=== PATIENT | male | born 1950 | race Caucasian/White ===

== ENCOUNTER → 2017-03-17 | Outpatient (CLI) | payer MEDICARE, OTHER | LOC: LAB SHORT 11:00 | DX: N39.0 Urinary tract infection, site not specified (principal) | CPT/HCPCS: 87077; 87086; 87186 ==

== ENCOUNTER → 2017-05-04 | Outpatient (CLI) | payer MEDICARE, OTHER | LOC: LAB 17:30 | DX: N39.0 Urinary tract infection, site not specified (principal) | CPT/HCPCS: 87086 ==

== ENCOUNTER → 2019-12-04 | Outpatient (CLI) | payer MEDICARE, OTHER | LOC: PLD 10:21 → LAB SHORT 10:21 | DX: D22.5 Melanocytic nevi of trunk (principal) | CPT/HCPCS: 88305 ==

== ENCOUNTER → 2020-03-11 | Outpatient (CLI) | payer MEDICARE, OTHER | END | disposition home or self-care (01) | LOC: LAB SHORT 15:46 → LAB 15:46 | DX: R82.998 Other abnormal findings in urine (principal) | CPT/HCPCS: 87077; 87086; 87186 ==

== ENCOUNTER → 2020-04-07 | Outpatient (CLI) | payer MEDICARE, OTHER | END | disposition home or self-care (01) | LOC: LAB 18:09 → LAB SHORT 18:09 | DX: R30.0 Dysuria (principal) | CPT/HCPCS: 87086 ==

== ENCOUNTER 2020-12-23 11:31 | Day surgery (SDC) | payer MEDICARE, OTHER ==
[~2020-12-23] VITALS: Ht 182.9 cm; Wt 131.6 kg
[2020-12-23] MEDS ORDERED: INSULANPEN SC (12:14)
[2020-12-23] MEDS ORDERED: NOVOLIN 70100 UNIT/3 SC (12:15)
[2020-12-23] MEDS ORDERED: TRAM50 (12:15)
[2020-12-23] MEDS ORDERED: HYDACE10B PO (12:15)
[2020-12-23] MEDS ORDERED: ATOR10 PO (12:16)
[2020-12-23] MEDS ORDERED: METFORMIN ER G500 MG PO (12:16)
[2020-12-23] MEDS ORDERED: TAMS.4ER PO (12:16)
[2020-12-23] MEDS ORDERED: TRULICITY1.5 MG/0.1 SQ (12:16)
[2020-12-23] MEDS ORDERED: AZOR 10-40 MG1 EACH PO (12:17)
[2020-12-23] MEDS ORDERED: MYRBETRIQ50 MG PO (12:17)
[2020-12-23] MEDS ORDERED: DOXA4 PO (12:17)
--- NOTE | 2020-12-23 12:28 | NUR ---
12/23/20 1228 Lisseth Corrales CALL LIGHT WITHIN REACH
--- NOTE | 2020-12-23 13:43 | NUR ---
12/23/20 1343 German Cabrera 1 MG EPI ADDED TO EACH OF THE FIRST 3 BAGS OF LR PER ORDER FOR IRRIGATION.
--- NOTE | 2020-12-23 15:32 | NUR ---
12/23/20 1532 Yasmin Martinez AT BEDSIDE/ MD STATES OKAY TO PROCEED TO STEP DOWN WITH 10L FACEMASK IN PLACE DUE TO SP02 AT 92-94% ON 10L STILL.
--- NOTE | 2020-12-23 15:44 | NUR ---
12/23/20 1544 Yasmin Martinez TRIAL DOWN TO 5L FACEMASK
== END 2020-12-23 17:04 | disposition home or self-care (01) ==
LOC: ORSCSDS 11:31
PROVIDERS: Orthopaedic Surgery
PROC: 0LM14ZZ Reattachment of Right Shoulder Tendon, Percutaneous Endoscopic Approach (ICD-10-PCS; principal; 2020-12-23 13:00)
PROC: 0RNJ4ZZ Release Right Shoulder Joint, Percutaneous Endoscopic Approach (ICD-10-PCS; principal; 2020-12-23 13:00)
PROC: 0RBJ4ZZ Excision of Right Shoulder Joint, Percutaneous Endoscopic Approach (ICD-10-PCS; principal; 2020-12-23 13:00)
DX: M75.121 Complete rotator cuff tear or rupture of right shoulder, not specified as traumatic (principal); M75.21 Bicipital tendinitis, right shoulder; M75.41 Impingement syndrome of right shoulder; M19.011 Primary osteoarthritis, right shoulder; I10 Essential (primary) hypertension; E11.9 Type 2 diabetes mellitus without complications; G47.33 Obstructive sleep apnea (adult) (pediatric); E66.01 Morbid (severe) obesity due to excess calories; Z68.39 Body mass index [BMI] 39.0-39.9, adult; Z79.4 Long term (current) use of insulin; Z79.899 Other long term (current) drug therapy; Z98.84 Bariatric surgery status
CPT/HCPCS: 82947; C1713; J0171; J0690; J1100; J2250; J2370; J2405; J2704; J3010; J7120

== ENCOUNTER → 2021-02-09 | Outpatient (CLI) | payer MEDICARE, OTHER ==
[~2021-02-09] MED LIST: ATOR10 PO; AZOR 10-40 MG1 EACH PO; DOXA4 PO; HYDACE10B PO; INSULANPEN SC; METFORMIN ER G500 MG PO; MYRBETRIQ50 MG PO; NOVOLIN 70100 UNIT/3 SC; TAMS.4ER PO; TRAM50; TRULICITY1.5 MG/0.1 SQ
== END ==
LOC: LAB SHORT 11:16 → LAB 11:16
DX: D48.5 Neoplasm of uncertain behavior of skin (principal); D03.59 Melanoma in situ of other part of trunk
CPT/HCPCS: 88305

== ENCOUNTER → 2021-03-04 | Outpatient (CLI) | payer MEDICARE, OTHER ==
[2021-03-04 10:29] LABS: Protein, Urine Quantitative 60.6 mg/dL (0.0-11.9)
== END | disposition home or self-care (01) ==
LOC: LAB SHORT 09:17
PROVIDERS: Family Medicine
DX: R80.9 Proteinuria, unspecified (principal)
CPT/HCPCS: 81050; 84156

== ENCOUNTER → 2021-06-23 | Outpatient (CLI) | payer MEDICARE, OTHER | END | disposition home or self-care (01) | LOC: PLD 12:42 → LAB SHORT 12:42 | DX: C44.612 Basal cell carcinoma of skin of right upper limb, including shoulder (principal); D04.71 Carcinoma in situ of skin of right lower limb, including hip | CPT/HCPCS: 88305 ==

== ENCOUNTER → 2021-12-25 | Outpatient (CLI) | payer MEDICARE, OTHER | END | disposition home or self-care (01) | LOC: LAB SHORT 08:49 → LAB 08:49 | DX: R30.0 Dysuria (principal) | CPT/HCPCS: 87077; 87086; 87186 ==

== ENCOUNTER → 2022-01-07 | Outpatient (CLI) | payer MEDICARE, OTHER | LOC: LAB SHORT 08:30 → LAB 08:30 | DX: R30.0 Dysuria (principal) | CPT/HCPCS: 87086 ==

== ENCOUNTER → 2022-05-23 | Outpatient (CLI) | payer MEDICARE, OTHER | LOC: LAB 09:00 → LAB SHORT 09:00 | DX: R30.0 Dysuria (principal) | CPT/HCPCS: 87077; 87086; 87186 ==

== ENCOUNTER → 2022-07-14 | Outpatient (CLI) | payer MEDICARE, OTHER ==
[2022-07-14 11:09] LABS: Protein, Urine Quantitative 127.9 mg/dL (0.0-11.9)
== END | disposition home or self-care (01) ==
LOC: LAB SHORT 05:00 → LAB 05:00
PROVIDERS: Family Medicine
DX: E11.649 Type 2 diabetes mellitus with hypoglycemia without coma (principal)
CPT/HCPCS: 81050; 84156

== ENCOUNTER → 2022-11-16 | Outpatient (CLI) | payer MEDICARE, OTHER | END | disposition home or self-care (01) | LOC: LAB SHORT 14:05 → LAB 14:05 | DX: R30.0 Dysuria (principal) | CPT/HCPCS: 87086 ==

== ENCOUNTER → 2023-01-11 | Outpatient (CLI) | payer MEDICARE, OTHER | LOC: LAB SHORT 10:15 → LAB 10:15 | DX: B35.1 Tinea unguium (principal) | CPT/HCPCS: 87102 ==

== ENCOUNTER → 2023-04-13 | Outpatient (CLI) | payer MEDICARE, OTHER | END | disposition home or self-care (01) | LOC: LAB 10:10 → LAB SHORT 10:10 | DX: R30.0 Dysuria (principal) | CPT/HCPCS: 87086 ==

== ENCOUNTER 2023-04-26 09:45 | Inpatient (IN) | payer MEDICARE, OTHER ==
[~2023-04-26] VITALS: Ht 182.9 cm; Wt 132.8 kg
[~2023-04-26 09:45] MED LIST changes: -TRAM50; +TRAM50 PO
[2023-04-26 10:12] LABS: BASOPHILS ABSOLUTE AUTO 0.03 K/mm3 (0.00-0.23); BASOPHILS PERCENT AUTO 0 % (0-2); EOSINOPHILS ABSOLUTE AUTO 0.32 K/mm3 (0.00-0.68); EOSINOPHILS PERCENT AUTO 4 % (0-6); Hematocrit 33.7 % (37.0-53.0); Hemoglobin 10.8 g/dL (13.5-17.5); IMMATURE GRAN ABSOLUTE AUTO 0.05 K/mm3 (0.00-0.10); IMMATURE GRAN PERCENT AUTO 1 % (0-1); LYMPHOCYTES ABSOLUTE AUTO 1.14 K/mm3 (0.84-5.20); LYMPHOCYTES PERCENT AUTO 13 % (21-46); MONOCYTES PERCENT AUTO 11 % (4-13); Mean Corpuscular Volume 94 fL (80-100); Mean Platelet Volume 11.3 fL (9.1-12.4); NEUTROPHILS PERCENT AUTO 72 % (41-73); Platelet Count 168 K/mm3 (150-400); RDW Coefficient Variation 13.9 % (11.7-14.2); RDW Standard Deviation 47.3 fL (35.1-46.3); White Blood Cell Count 9.04 K/mm3 (4.00-11.30)
[2023-04-26 10:44] LABS: Albumin, Blood 3.9 g/dL (3.4-5.0); Albumin/Globulin Ratio 1.1 (0.8-1.8); Bilirubin, Total 0.4 mg/dL (0.1-1.0); Bun/Creatinine Ratio 24.6 (12.0-20.0); Calcium, Blood 9.1 mg/dL (8.5-10.1); Creatinine, Blood 1.34 mg/dL (0.60-1.20); Globulin, Blood 3.7 g/dL (2.2-4.0); Potassium, Blood 4.3 mmol/L (3.5-5.5); Total Protein, Blood 7.6 g/dL (6.4-8.2)
[2023-04-26] MEDS ORDERED: Furosemide 10 MG / ML 2ML Vial IV ONE (11:50)
[2023-04-26] MEDS ORDERED: Metoprolol Tartrate 1 MG/ML 5 ML VIAL IV ONE (11:50)
[2023-04-26] MEDS ORDERED: FLU VACC QS2023-24(6MOS UP)/PF 60 MCG/0.5 ML SYRINGE IM SCH (13:20)
[2023-04-26] MEDS ORDERED: Ondansetron HCl 2 MG / ML 2ML Vial IV PRN (13:20)
[2023-04-26] MEDS ORDERED: Metoprolol Succinate 25 MG TABCR PO SCH (14:00)
[2023-04-26] MEDS ORDERED: Enoxaparin 150 MG/ML 1ML SYR SC SCH ×2 (14:02→21:00)
[2023-04-26 14:17] LABS: Magnesium, Blood 2.3 mg/dL (1.6-2.4); Thyroid Stimulating Hormone 3.03 uIU/mL (0.360-4.800)
[2023-04-26 14:56] VITALS: BP 127/80
[2023-04-26] MEDS ORDERED: FIASP 100100 UNIT/3 SC (15:12)
[2023-04-26] MEDS ORDERED: Furosemide 10 MG / ML 2ML Vial IV SCH (18:00)
[2023-04-26] MEDS ORDERED: Tamsulosin HCl 0.4 MG Cap PO SCH (19:00)
[2023-04-26] MEDS ORDERED: Atorvastatin 10 MG Tab PO SCH (19:00)
[2023-04-26 19:32] VITALS: BP 131/97
[2023-04-26] MEDS ORDERED: Enoxaparin 100 MG/ML 1ML SYR SC SCH (21:00)
[2023-04-27 04:56] VITALS: BP 123/86
[2023-04-27 05:40] LABS: BASOPHILS ABSOLUTE AUTO 0.05 K/mm3 (0.00-0.23); BASOPHILS PERCENT AUTO 1 % (0-2); EOSINOPHILS PERCENT AUTO 5 % (0-6); Hematocrit 33.8 % (37.0-53.0); Hemoglobin 10.8 g/dL (13.5-17.5); IMMATURE GRAN ABSOLUTE AUTO 0.05 K/mm3 (0.00-0.10); IMMATURE GRAN PERCENT AUTO 1 % (0-1); LYMPHOCYTES ABSOLUTE AUTO 1.42 K/mm3 (0.84-5.20); LYMPHOCYTES PERCENT AUTO 14 % (21-46); MONOCYTES ABSOLUTE AUTO 1.11 K/mm3 (0.16-1.47); MONOCYTES PERCENT AUTO 11 % (4-13); Mean Corpuscular HGB 29.8 pg (26.0-34.0); Mean Corpuscular Volume 93 fL (80-100); Mean Platelet Volume 11.4 fL (9.1-12.4); NEUTROPHILS ABSOLUTE AUTO 7.29 K/mm3 (1.96-9.15); NEUTROPHILS PERCENT AUTO 70 % (41-73); Platelet Count 173 K/mm3 (150-400); RDW Coefficient Variation 13.9 % (11.7-14.2); RDW Standard Deviation 46.9 fL (35.1-46.3); Red Blood Cell Count 3.63 M/mm3 (4.30-5.90); White Blood Cell Count 10.42 K/mm3 (4.00-11.30)
[2023-04-27 06:11] LABS: Albumin, Blood 3.5 g/dL (3.4-5.0); Bilirubin, Total 0.4 mg/dL (0.1-1.0); Bun/Creatinine Ratio 28.1 (12.0-20.0); Calcium, Blood 9.2 mg/dL (8.5-10.1); Creatinine, Blood 1.21 mg/dL (0.60-1.20); Globulin, Blood 3.5 g/dL (2.2-4.0); Potassium, Blood 4.5 mmol/L (3.5-5.5)
[2023-04-27] MEDS ORDERED: Insulin Regular 100 UNIT/ML 10ML Vial SC SCH (07:30)
[2023-04-27] MEDS ORDERED: Trospium Chloride 20 MG Tab PO SCH (07:30)
[2023-04-27 07:35] VITALS: BP 117/83
--- NOTE | 2023-04-27 08:22 | NUR ---
SHIFT SUMMARY KENDRA IS A&OX4, PLEASANT AND COOPERATIVE WITH CARES. VSS ON RA, CPAP WHILE ASLEEP. A-FIB WITH RATES IN THE 80'S-90'S PER TELEMETRY. NO C/O CHEST PAIN/PRESSURE. DENIES PAIN. TOLERATING A 2 GM Na RESTRICTED DIET. PT'S BG IS BRITTLE. I GAVE HIM SNACKS T/O NOC, AND HIS BG WAS STILL DROPPING. HE IS SCHEDULED FOR AN ECHO TODAY, THEN HE IS HOPING TO GO HOME. INDEPENDENT IN ROOM/BR. STRICT I&O, VOIDING IN URINAL. ADEQUATE CLEAR YELLOW URINE OUTPUT, NO BM THIS SHIFT. BED IN LOWEST POSITION, CALL LIGHT WITHIN REACH.
[2023-04-27] MEDS ORDERED: Enoxaparin 40 MG/0.4 ML SYR SC SCH (09:00)
[2023-04-27] MEDS ORDERED: TraMADol HCl 50 MG Tab PO SCH (09:00)
[2023-04-27] MEDS ORDERED: Ipratropium/Albuterol SulF 2.5-0.5MG/3 ML Amp INH SCH (09:25)
[2023-04-27] MEDS ORDERED: Fluticasone 0.05% Nasal Spray SCH (10:00)
[2023-04-27] MEDS ORDERED: Insulin Human Lispro 100 Units/ML 3ML Syringe SC SCH (11:30)
--- NOTE | 2023-04-27 15:08 | NUR ---
SHIFT SUMMARY MR ALBERTO IS ALERT AND ORIENTATED, DENIES ANY PAIN. AMBULATED IN TO SHOWER, STEADY GAIT. AWAITING ECHO. ON TELEMETRY IN AFIB. 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 ON CONTINUOUS PULSE OXIMETER IN THE 90S ON ROOM AIR. BED LOW, CALL LIGHT IN REACH.
[2023-04-27 15:23] VITALS: BP 118/85
[2023-04-27] MEDS ORDERED: Furosemide 20 MG Tab PO SCH (18:00)
[2023-04-27 19:24] VITALS: BP 131/88
--- NOTE | 2023-04-28 01:32 | NUR ---
ACCU CHECK 79, ASYMPTOMATIC. SNACK GIVEN. WILL CONTINUE TO MONITOR
--- NOTE | 2023-04-28 04:02 | NUR ---
[employer] INFORMATION CLERK SUMMARY VSS. LUNG SOUNDS DIMINISHED TO AUSCULTATION. CPAP AT NIGHT, CONTINUOUS PULSE OX. 90'S SATS. MED TELE A FIB. ACCU CHECK AT HS WAS 93, RECEIVED A SNACK AND RECHECKED LATER, WAS 79, AND AGAIN RECEIVED A SNACK. ASYMPTOMATIC. AWAITING RESULTS FROM ECHO. UP AD ANH. HAS BEEN RESTING QUIETLY WITH OCCASIONAL INERRUPTION. CALL LIGHT IN REACH. RAILS UP X 2 FOR SAFETY. WILL CONTINUE TO MONITOR
[2023-04-28 04:37] VITALS: BP 129/101
[2023-04-28 04:47] LABS: BASOPHILS ABSOLUTE AUTO 0.05 K/mm3 (0.00-0.23); BASOPHILS PERCENT AUTO 1 % (0-2); EOSINOPHILS ABSOLUTE AUTO 0.42 K/mm3 (0.00-0.68); EOSINOPHILS PERCENT AUTO 4 % (0-6); Hematocrit 33.4 % (37.0-53.0); Hemoglobin 10.6 g/dL (13.5-17.5); IMMATURE GRAN ABSOLUTE AUTO 0.05 K/mm3 (0.00-0.10); IMMATURE GRAN PERCENT AUTO 1 % (0-1); LYMPHOCYTES PERCENT AUTO 14 % (21-46); MONOCYTES ABSOLUTE AUTO 1.25 K/mm3 (0.16-1.47); MONOCYTES PERCENT AUTO 11 % (4-13); Mean Corpuscular HGB 29.2 pg (26.0-34.0); Mean Corpuscular HGB Conc 31.7 g/dL (31.5-36.5); Mean Corpuscular Volume 92 fL (80-100); Mean Platelet Volume 11.2 fL (9.1-12.4); NEUTROPHILS ABSOLUTE AUTO 7.72 K/mm3 (1.96-9.15); NEUTROPHILS PERCENT AUTO 70 % (41-73); Platelet Count 183 K/mm3 (150-400); RDW Coefficient Variation 13.9 % (11.7-14.2); RDW Standard Deviation 46.7 fL (35.1-46.3); Red Blood Cell Count 3.63 M/mm3 (4.30-5.90); White Blood Cell Count 10.99 K/mm3 (4.00-11.30)
[2023-04-28 05:10] LABS: Albumin, Blood 3.7 g/dL (3.4-5.0); Albumin/Globulin Ratio 1.1 (0.8-1.8); Bilirubin, Total 0.5 mg/dL (0.1-1.0); Bun/Creatinine Ratio 27.5 (12.0-20.0); Calcium, Blood 9.8 mg/dL (8.5-10.1); Creatinine, Blood 1.42 mg/dL (0.60-1.20); Globulin, Blood 3.3 g/dL (2.2-4.0); Potassium, Blood 4.6 mmol/L (3.5-5.5)
[2023-04-28 07:48] VITALS: BP 135/97
[2023-04-28] MEDS ORDERED: Regadenoson 0.4 MG/5 ML SYRINGE ONE (12:40)
[2023-04-28] MEDS ORDERED: Caffeine Citrated 60 MG/3 ML Vial ONE (12:40)
[2023-04-28 19:19] VITALS: BP 131/89
[2023-04-29 04:07] VITALS: BP 139/105
--- NOTE | 2023-04-29 04:40 | NUR ---
Shift Summary Patient is a 72 year old male. He was admitted with Atrial fib and bronchitis. He was NPO after MN for the 2nd part of a stress test to be done in the morning. He sleeps with a CPAP at night. Respriations are regular and unlabored. Skin warm and dry. Denies pain. He is independently ambulatory in the room. Bed is in low position with call light in reach.
[2023-04-29 05:19] LABS: Hematocrit 33.6 % (37.0-53.0); Hemoglobin 10.9 g/dL (13.5-17.5); Mean Corpuscular HGB 29.2 pg (26.0-34.0); Mean Corpuscular HGB Conc 32.4 g/dL (31.5-36.5); Mean Corpuscular Volume 90 fL (80-100); Mean Platelet Volume 11.8 fL (9.1-12.4); Platelet Count 198 K/mm3 (150-400); RDW Coefficient Variation 13.9 % (11.7-14.2); RDW Standard Deviation 45.5 fL (35.1-46.3); Red Blood Cell Count 3.73 M/mm3 (4.30-5.90); White Blood Cell Count 10.79 K/mm3 (4.00-11.30)
[2023-04-29 05:41] LABS: Albumin, Blood 3.9 g/dL (3.4-5.0); Albumin/Globulin Ratio 1.1 (0.8-1.8); Bilirubin, Total 0.6 mg/dL (0.1-1.0); Bun/Creatinine Ratio 30.8 (12.0-20.0); Calcium, Blood 9.9 mg/dL (8.5-10.1); Creatinine, Blood 1.33 mg/dL (0.60-1.20); Globulin, Blood 3.6 g/dL (2.2-4.0); Potassium, Blood 4.7 mmol/L (3.5-5.5); Total Protein, Blood 7.5 g/dL (6.4-8.2)
[2023-04-29 07:35] VITALS: BP 132/78
[2023-04-29] MEDS ORDERED: Lisinopril 5 MG Tab PO SCH (09:00)
[2023-04-29] MEDS ORDERED: Furosemide 10 MG/ML 4ML Vial IV SCH (09:00)
[2023-04-29] MEDS ORDERED: Furosemide 40 MG Tab PO SCH (09:00)
[2023-04-29] MEDS ORDERED: Empagliflozin 10 MG TAB PO SCH (09:00)
[2023-04-29] MEDS ORDERED: Polyethylene Glycol 3350 17 gm PO ONE (10:30)
[2023-04-29] MEDS ORDERED: Aspirin 81 MG Chew PO SCH (11:00)
[2023-04-29] MEDS ORDERED: ASPI81CH PO (13:25)
[2023-04-29] MEDS ORDERED: JARDIANCE10 MG PO (13:25)
[2023-04-29] MEDS ORDERED: ELIQUIS5 M2 PO (13:25)
[2023-04-29] MEDS ORDERED: FURO40 PO (13:26)
[2023-04-29] MEDS ORDERED: FLUT.05NI (13:26)
[2023-04-29] MEDS ORDERED: IPRAT-ALBUT 0.5-3 ML INH (13:27)
[2023-04-29] MEDS ORDERED: Lisinopril2.5 MG PO (13:28)
[2023-04-29] MEDS ORDERED: METO50ER PO (13:30)
--- NOTE | 2023-04-29 13:53 | NUR ---
RECEIVED A CALL FROM TIMOTHY [employer] AT 1340. PER TIMOTHY PATIENT HAD EPISODE OF RVR AT 1325 AND 1335, AFIB c HR IN THE 150'S BPM. THIS RN ASSESS PATIENT; PATIENT AMBULATING TO BATHROOM, DENIES CP/PRESSURE, SOB, DIZZINESS AND N/V. REPORT TO DR. VELASCO REGARDING THIS CONCERNED. RECEIVED ORDER TO GIVE 25 MG PO METOPROLOL NOW.
[2023-04-29] MEDS ORDERED: Metoprolol Succinate 25 MG TABCR PO ONE (14:00)
[2023-04-29 14:02] VITALS: BP 134/98
--- NOTE | 2023-04-29 15:49 | NUR ---
SHIFT SUMMARY: PATIENT A/OX4, ANSWER TO QUESTIONS APPROPRIATELY AND ABLE TO MAKE NEEDS KNOWN. PATIENT DENIES CP/PRESSURE, N/V, SOB, AND DIZZINESS. PATIENT ON TELE, AFIB HR RANGES IN THE HIGH 90'S-120'S BPM AND GOES UP TO 130'S-150'S BPM c AMBULATION. PATIENT RECEIVED OT DOSE PO METOPROLOL THIS PM, PER ORDER. PATIENT HAD HIS 2ND PART OF STRESS TEST DONE TODAY. PATIENT REPORTS "NO BM FOR 2 DAYS AND FEELING CONSTIPATED", MEDICATED c OT DOSE OF MIRALAX AND GIVEN WARM PRUNE JUICE. PATIENT REPORTS 3 SMALL HARD BROWN BM THIS SHIFT. PATIENT IS INDEPENDENT IN ROOM/BATHROOM AND HAS BEEN AMBULATING T/O SHIFT. PATIENT BS BEFORE BREAKFAST 113 AND BEFORE LUNCH 173. PATIENT RECEIVED INSULIN COVERAGE AT LUNCH PER EMAR SLIDING SCALE. PATIENT HAS EXCELLENT APPETITE AND ATE 100% FOR BREAKFAST AND LUNCH. PATIENT REQUESTING TO GO HOME THIS PM, NOTIFIED DR. ROD kramer PATIENT REQUEST. PER DR. VELASCO HE WILL REVIEWED PATIENT CHART. PATIENT HAS NO COMPLAINTS OR DENIES NEW CONCERNED THIS SHIFT. VITAL SIGNS REVIEWED. PIV TO LAC SALINE LOCKED. CALL LIGHT IN REACH.
--- NOTE | 2023-04-29 17:01 | NUR ---
DISCHARGE SUMMARY: PATIENT PIV TO [facility] DC[facility]. PATIENT DISCHARGE HOME. DISCHARGE INSTRUCTIONS PACKET GIVEN TO PATIENT. EDUCATE PATIENT REGARDING ADMITTING DX'S OF AFIB, S/S, TX, NEW PRESCRIBED RX, SELF CARE AND TO FOLLOW UP c PCP. HARD SCRIPT ORDER FOR CMP LAB GIVEN TO PATIENT. PATIENT VERBALIZED UNDERSTANDING AND NO FURTHER QUESTIONS. RX WAS FAXED TO PATIENT PREFERRED PHARMACY ([id number]). ALL PATIENT PERSONAL BELONGINGS WERE SENT HOME c THE PATIENT. PATIENT LEFT THE ROOM AT 1655 AND WAS TRANSPORTED VIA WHEELCHAIR BY PAROLE DIRECTOR STAFFTRINA TO PATIENT ENTRANCE.
== END 2023-04-29 17:10 | disposition home or self-care (01) | DRG 291 ==
LOC: ER 09:45 → MEDS 09:46 → ENPENDDIS 04-29 16:09 → MEDS 04-29 17:10
PROVIDERS: Emergency Medicine; Family Medicine Adult Medicine; Student in an Organized Health Care Education/Training Program; ADMIT Internal Medicine
DX: I11.0 Hypertensive heart disease with heart failure (principal); I50.21 Acute systolic (congestive) heart failure; I48.91 Unspecified atrial fibrillation; E11.9 Type 2 diabetes mellitus without complications; E78.00 Pure hypercholesterolemia, unspecified; D64.9 Anemia, unspecified; N40.0 Benign prostatic hyperplasia without lower urinary tract symptoms; Z79.4 Long term (current) use of insulin
CPT/HCPCS: 36415; 71045; 71260; 78452; 80053; 82947; 83735; 83880; 84443; 84484; 85025; 85027; 93005; 93010; 93017; 94640; 94660; 94664; 94762; 96372; 96374-59; 96375-59; 96376; 99285-25; A9270; A9500; C8929; G0378; J0706; J1650; J1940; J2785; Q9957; Q9967

== ENCOUNTER 2023-07-05 06:03 | Day surgery (SDC) | payer MEDICARE, OTHER ==
[~2023-07-05] VITALS: Ht 182.9 cm; Wt 128.0 kg
[~2023-07-05 06:03] MED LIST changes: +ASPI81CH PO; +ELIQUIS5 M2 PO; +FIASP 100100 UNIT/3 SC; +FLUT.05NI; +FURO40 PO; +IPRAT-ALBUT 0.5-3 ML INH; +JARDIANCE10 MG PO; +Lisinopril2.5 MG PO; +METO50ER PO
[2023-07-05] MEDS ORDERED: NOVOLOG FL100 UNIT/3 (06:27)
[2023-07-05] MEDS ORDERED: ENTRESTO 24 MG1 EACH PO (06:27)
[2023-07-05] MEDS ORDERED: SPIR25 PO (06:28)
[2023-07-05 06:39] VITALS: BP 120/82
[2023-07-05 06:45] VITALS: BP 121/86
[2023-07-05] MEDS ORDERED: NS 1,000 ML IV ONE (06:45)
[2023-07-05] MEDS ORDERED: propofoL 20 ML IV ONE (06:47)
[2023-07-05 06:57] VITALS: BP 112/73
[2023-07-05 07:30] VITALS: BP 117/74
== END 2023-07-06 23:02 | disposition home or self-care (01) ==
LOC: MHTC 06:03
DX: I48.19 Other persistent atrial fibrillation (principal); I13.0 Hypertensive heart and chronic kidney disease with heart failure and stage 1 through stage 4 chronic kidney disease, or unspecified chronic kidney disease; I50.20 Unspecified systolic (congestive) heart failure; N18.9 Chronic kidney disease, unspecified; E11.22 Type 2 diabetes mellitus with diabetic chronic kidney disease; E78.5 Hyperlipidemia, unspecified; I25.10 Atherosclerotic heart disease of native coronary artery without angina pectoris; G47.33 Obstructive sleep apnea (adult) (pediatric); Z79.4 Long term (current) use of insulin; Z79.899 Other long term (current) drug therapy
CPT/HCPCS: 92960; 93005; 93010; J2704; J7030

== ENCOUNTER → 2024-01-30 | Outpatient (CLI) | payer MEDICARE ==
[~2024-01-30] MED LIST changes: +ENTRESTO 24 MG1 EACH PO; +NOVOLOG FL100 UNIT/3; +SPIR25 PO
== END | disposition home or self-care (01) ==
LOC: LAB SHORT 18:57 → LAB 18:57
DX: R30.0 Dysuria (principal)
CPT/HCPCS: 87086